=== PATIENT | female | born 1965 | race African-American/Black ===

== ENCOUNTER 2019-07-31 09:13 | Emergency (ER) | payer BC ==
[2019-07-31] MEDS ORDERED: ACETAMINOPHEN 325 MG TABLET PO ONE (09:51)
[2019-07-31] MEDS ORDERED: ONDANSETRON HCL INJ/PF 4 MG/2 ML SDV IV ONE (09:51)
[2019-07-31] MEDS ORDERED: KETOROLAC TROMETHAMINE INJ/PF 30 MG/1 ML SDV IV ONE (09:51)
[2019-07-31] MEDS ORDERED: NORMAL SALINE 1000 ML 1,000 ML IV ONE ×2 (09:51→11:16)
--- NOTE | 2019-07-31 09:53 | ER Document Report ---
ED Medical Screen (RME) - General Chief Complaint: Flu Symptoms Stated Complaint: BODY ACHES,VOMITING,COUGH Time Seen by Provider: 07/31/19 09:50 Notes: Patient is a 54-year-old female presents emergency department with chief complaint of flulike symptoms. Patient reports symptoms started within the past 24 hours. Patient reports vomiting about 3 times. Patient reports low-grade temp. Patient reports she does work at the [employer] is unsure if she has been exposed to contacts that are sick. Patient denies diarrhea. Patient did receive the influenza vaccine this year. TRAVEL OUTSIDE OF THE [place] IN LAST 30 DAYS: No - Related Data Allergies/Adverse Reactions: Penicillins Allergy (Verified 07/31/19 09:38) Past Medical History - Social History Chew tobacco use (# tins/day): No Frequency of alcohol use: None Drug Abuse: None Musculoskeltal Medical History: Reports Hx Musculoskeletal Trauma - previous similar right knee injury no surgery or fracture Past Surgical History: Reports: Hx Section - x1 - Immunizations Hx Diphtheria, Pertussis, Tetanus Vaccination: Yes Physical Exam - Vital signs Vitals: Temp Pulse Resp BP Pulse Ox 100.3 F 135 H 20 149/82 H 98 07/31/19 09:19 07/31/19 09:19 07/31/19 09:19 07/31/19 09:19 07/31/19 09:19 Course - Re-evaluation Re-evalutation: 07/31/19 09:52 Patient tachycardic in triage with a heart rate of 135. Will initiate basic labs as well as IV fluids. I have greeted and performed a rapid initial assessment of this patient. A comprehensive ED assessment and evaluation of the patient, analysis of test results and completion of the medical decision making process will be conducted by additional ED providers. - Vital Signs Vital signs: Temp Pulse Resp BP Pulse Ox 100.3 F 135 H 20 149/82 H 98 07/31/19 09:19 07/31/19 09:19 07/31/19 09:19 07/31/19 09:19 07/31/19 09:19
--- NOTE | 2019-07-31 10:15 | ER Document Report ---
ED General - General Chief Complaint: Flu Symptoms Stated Complaint: BODY ACHES,VOMITING,COUGH Time Seen by Provider: 07/31/19 09:50 Primary Care Provider: [facility] [Provider Group] - Follow up in 3-5 days CLARISA العراقي MD [ACTIVE STAFF] - Follow up in 3-5 days Notes: 54-year-old female presents with 24-hour history of nausea/vomiting and generalized body aches. Patient also reports a "low-grade fever." T-max is 100. Patient states she works at [employer] and is unsure if she was exposed to the flu. Patient states she did have her flu shot this year. Patient also reports coughing. Patient does not specifically complain of abdominal pain but states she hurts "everywhere." TRAVEL OUTSIDE OF THE [place] IN LAST 30 DAYS: No - Related Data Allergies/Adverse Reactions: Penicillins Allergy (Verified 07/31/19 09:38) Past Medical History - Social History Smoking Status: Never Smoker Chew tobacco use (# tins/day): No Frequency of alcohol use: None Drug Abuse: None Family History: Reviewed & Not Pertinent Patient has suicidal ideation: No Patient has homicidal ideation: No Musculoskeletal Medical History: Reports Hx Musculoskeletal Trauma - previous similar right knee injury no surgery or fracture Past Surgical History: Reports: Hx Section - x1 - Immunizations Hx Diphtheria, Pertussis, Tetanus Vaccination: Yes Review of Systems - Review of Systems Notes: Constitutional: Positive for fever. HENT: Positive for nonproductive cough. Negative for sore throat. Eyes: Negative for visual changes. Cardiovascular: Negative for chest pain. Respiratory: Negative for shortness of breath. Gastrointestinal: Positive for nausea/vomiting. Negative for abdominal pain or diarrhea. Genitourinary: Negative for dysuria. Musculoskeletal: Positive for generalized body aches. Negative for back pain. Skin: Negative for rash. Neurological: Negative for headaches, weakness or numbness. 10 point ROS negative except as marked above and in HPI. Physical Exam - Vital signs Vitals: Temp Pulse Resp BP Pulse Ox 100.3 F 135 H 20 149/82 H 98 07/31/19 09:19 07/31/19 09:19 07/31/19 09:19 07/31/19 09:19 07/31/19 09:19 - Notes Notes: GENERAL: Well-appearing, well-nourished and in no acute distress. HEAD: Atraumatic, normocephalic. EYES: Extraocular movements intact, sclera anicteric, conjunctiva are normal. NECK: Normal range of motion, supple without lymphadenopathy or JVD. LUNGS: Breath sounds clear to auscultation bilaterally and equal. No wheezes rales or rhonchi. HEART: Tachycardic without murmurs, rubs or gallops. ABDOMEN: Soft, nontender. No guarding, no rebound. No masses appreciated. EXTREMITIES: Normal range of motion, no pitting or edema. No clubbing or cyanosis. NEUROLOGICAL: Cranial nerves II through XII grossly intact. Normal speech, normal gait. PSYCH: Normal mood, normal affect. SKIN: Warm, Dry, normal turgor, no rashes or lesions noted. Course - Re-evaluation Re-evalutation: 07/31/19 nontoxic, well-appearing 54-year-old female presents with flulike symptoms for the past 24 hours. Patient is noted to be tachycardic at 130s in triage. Patient is also tachycardic on my exam. Lungs clear to auscultation bilaterally. PE is otherwise unremarkable. Lab work including CBC, CMP, and flu test were initiated in triage. 1 L normal saline bolus, Zofran, and Tylenol were also ordered in triage. Chest x-ray was added on. 07/31/19 11:51 CXR neg. No leukocytosis. Flu test neg. Pt's HR 110-115, 2nd liter of NS bolus ordered. 07/31/19 13:27 Pt feels better. Discussed all results with pt. Pt's HR is nontachycardic. PO challenge passed. Pt to finish receiving IV fluids and then be discharged. Return precautions given. Pt voices understanding and agrees with plan of care. 07/31/19 13:44 HR 100 - Vital Signs Vital signs: Temp Pulse Resp BP Pulse Ox 100.3 F 135 H 20 149/82 H 98 07/31/19 09:19 07/31/19 09:19 07/31/19 09:19 07/31/19 09:19 07/31/19 09:19 - Laboratory Result Diagrams: 07/31/19 10:30 07/31/19 10:30 Laboratory results interpreted by me: 07/31/19 07/31/19 07/31/19 10:30 10:30 10:30 Lymph % (Auto) 5.8 L Absolute Lymphs (auto) 0.4 L Seg Neutrophils % 83.2 H Total Protein 8.7 H Urine Blood MODERATE H Discharge - Discharge Clinical Impression: Influenza-like illness Condition: Stable Disposition: HOME, SELF-CARE Instructions: Influenza ([facility]) [id number] Additional Instructions: You most likely have the flu. There is no treatment that is effective for this diagnosis other than supportive care at home. This includes drinking plenty of fluids, using Tylenol or ibuprofen as needed for fever and discomfort, and Zofran as needed for nausea and vomiting. Please follow closely with you primary care physician the next 1-2 days regarding this diagnosis. Return to the emergency department immediately if you began to have persistent vomiting prevents you from being able to keep fluids down for more than 12 hours, you pass out, you began having difficulty breathing, you become confused, or you have any other symptoms that are worrisome to you. Prescriptions: Ondansetron [Zofran Odt 4 mg Tablet] 4 mg PO Q4HP PRN #30 tab.rapdis PRN Reason: Ibuprofen [Motrin 800 mg Tablet] 800 mg PO Q8H PRN #30 tab PRN Reason: Forms: Return to Work Referrals: CLARISA العراقي MD [ACTIVE STAFF] - Follow up in 3-5 days [facility] [Provider Group] - Follow up in 3-5 days
[2019-07-31 10:32] LABS: A TYPE INFLUENZA AG NEGATIVE (NEGATIVE); B INFLUENZA AG NEGATIVE (NEGATIVE)
[2019-07-31 10:46] LABS: ABSOLUTE LYMPHOCYTES (AUTO) 0.4 10^3/uL (0.5-4.7); ABSOLUTE MONOCYTES (AUTO) 0.7 10^3/uL (0.1-1.4); ABSOLUTE NEUT (AUTO) 5.6 10^3/uL (1.7-8.2); BASOPHILS % (AUTO) 0.4 % (0-2); EOSINOPHILS % (AUTO) 0.2 % (0-6); HEMATOCRIT 42.7 % (36.0-47.0); HEMOGLOBIN 14.1 g/dL (12.0-15.5); LYMPHOCYTES % (AUTO) 5.8 % (13-45); MEAN CORPUSCULAR HEMOGLOBIN 27.6 pg (27.0-33.4); MEAN CORPUSCULAR VOLUME 84 fl (80-97); MONOCYTES % (AUTO) 10.4 % (3-13); PLATELET COUNT 193 10^3/uL (150-450); SEGMENTED NEUTROPHILS % (AUTO) 83.2 % (42-78); TOTAL CELLS COUNTED % (AUTO) 100 %; WHITE BLOOD COUNT 6.7 10^3/uL (4.0-10.5)
[2019-07-31 11:00] LABS: AMORPHOUS SEDIMENT,URINE TRACE /HPF; APPEARANCE,URINE SLIGHTLY-CLOUDY; BILIRUBIN,URINE NEGATIVE (NEGATIVE); COLOR,URINE YELLOW; GLUCOSE, URINE NEGATIVE (NEGATIVE); KETONES,URINE NEGATIVE (NEGATIVE); LEUKOCYTE ESTERASE,URINE NEGATIVE (NEGATIVE); NITRITE,URINE NEGATIVE (NEGATIVE); PROTEIN,URINE NEGATIVE (NEGATIVE); URINE SPECIFIC GRAVITY 1.008; UROBILINOGEN,URINE NEGATIVE mg/dL (<2.0)
[2019-07-31 11:01] LABS: ALBUMIN 4.5 g/dL (3.5-5.0); ALKALINE PHOSPHATASE 85 U/L (38-126); ANION GAP 11 (5-19); ASPARTATE AMINO TRANSFERASE 31 U/L (14-36); BILIRUBIN,DIRECT 0.3 mg/dL (0.0-0.4); BILIRUBIN,TOTAL 0.7 mg/dL (0.2-1.3); BLOOD UREA NITROGEN 16 mg/dL (7-20); CALCIUM 9.8 mg/dL (8.4-10.2); CARBON DIOXIDE 26 mmol/L (22-30); CHLORIDE 100 mmol/L (98-107); GLUCOSE 106 mg/dL (75-110); POTASSIUM 4.3 mmol/L (3.6-5.0); TOTAL PROTEIN 8.7 g/dL (6.3-8.2)
--- NOTE | 2019-07-31 11:24 | RADIOLOGY REPORT (SQ) ---
EXAM DESCRIPTION: CHEST 2 VIEWS COMPLETED DATE/TIME: 07/31/2019 11:14 am REASON FOR STUDY: cough, fever COMPARISON: None. EXAM PARAMETERS: NUMBER OF VIEWS: two views TECHNIQUE: Digital Frontal and Lateral radiographic views of the chest acquired. RADIATION DOSE: NA LIMITATIONS: none FINDINGS: LUNGS AND PLEURA: No opacities, masses or pneumothorax. No pleural effusion. MEDIASTINUM AND HILAR STRUCTURES: No masses or contour abnormalities. HEART AND VASCULAR STRUCTURES: Heart normal size. No evidence for failure. BONES: No acute findings. HARDWARE: None in the chest. OTHER: No other significant finding. IMPRESSION: NO ACUTE RADIOGRAPHIC FINDING IN THE CHEST. TECHNICAL DOCUMENTATION: JOB ID: [id number] 2010 [employer]- All Rights Reserved Reading location - IP/workstation name: [email or web address]
[2019-07-31] MEDS ORDERED: MORPHINE SULFATE 10 MG/ML INJ IV ONE (12:39)
[2019-07-31 14:24] VITALS: BP 137/77
== END 2019-07-31 14:24 | disposition home or self-care (01) ==
LOC: ER 09:13
DX: J11.1 Influenza due to unidentified influenza virus with other respiratory manifestations (principal); M79.10 Myalgia, unspecified site; R05 Cough; R11.2 Nausea with vomiting, unspecified; R50.9 Fever, unspecified
CPT/HCPCS: 99283; 96361; 96374; 96375; 36415; 85025; 80053; 81001; 87804; 71046; J1885; J2270; J2405; J7030